=== PATIENT | male | born 1975 | race Caucasian/White ===

== ENCOUNTER 2024-04-01 15:10 | Emergency (ER) | payer OTHER ==
[~2024-04-01] VITALS: Ht 190.5 cm; Wt 86.4 kg
[2024-04-01] MEDS ORDERED: GABA-1181 PO (15:30)
[2024-04-01] MEDS ORDERED: FOLI-130 PO (15:30)
[2024-04-01] MEDS ORDERED: 0.9% SODIUM CHLORIDE 10 ML SYRINGE IVP PRN (15:45)
[2024-04-01] MEDS: SODIUM CHLORIDE 0.9% 2,600 ML IV ONE (15:59)
[2024-04-01] MEDS: ACETAMINOPHEN 1000 MG/ISO-OSM 100 ML IV ONE (15:59)
[2024-04-01 16:23] LABS: BASOPHILS % (AUTO) 0.7 % (0.0-2.0); EOSINOPHILS % (AUTO) 3.3 % (1.0-6.0); HEMATOCRIT 44.9 % (41-53); HEMOGLOBIN 15.1 g/dL (13.5-17.5); LYMPHOCYTES % (AUTO) 19.2 % (22.0-44.0); MEAN CORPUSCULAR HEMOGLOBIN 36.2 pg (26.0-34.0); MEAN CORPUSCULAR HGB CONC 33.6 G/dL (31.0-37.0); MEAN CORPUSCULAR VOLUME 108 fL (80-100); MONOCYTES # (AUTO) 0.5 K/uL (0.1-1.0); MONOCYTES % (AUTO) 9.5 % (2.0-9.0); NEUTROPHILS # (AUTO) 3.5 K/uL (1.8-7.7); NEUTROPHILS % (AUTO) 67.3 % (40.0-70.0); PLATELET COUNT (AUTO) 215 K/uL (150-450); RED BLOOD CELL COUNT(AUTO) 4.17 MIL/uL (4.50-5.90); RED CELL DISTRIBUTION WIDTH 13.2 % (11.5-14.5); WHITE BLOOD COUNT (AUTO) 5.2 K/uL (4.5-11.0)
[2024-04-01 16:30] LABS: PROTHROMBIN TIME 10.1 SEC (9.4-11.6)
[2024-04-01 16:31] LABS: ANION GAP 13 mmol/L (8-16); CALCIUM, TOTAL 8.6 mg/dL (8.8-10.5); CARBON DIOXIDE 25 mmol/L (22-29); CHLORIDE 104 mmol/L (98-107); CREATININE 1.26 mg/dL (0.60-1.30); GLOMERULAR FILTR. RATE CALC > 60 mL/min (>60); GLUCOSE,RANDOM 83 mg/dL (70-110); POTASSIUM 3.7 mmol/L (3.5-5.1); SODIUM SERUM 142 mmol/L (136-145); UREA NITROGEN, BLOOD 13 mg/dL (7-18)
[2024-04-01 16:37] LABS: TROPONIN I-HIGH SENSITIVITY 4 ng/L (<76)
[2024-04-01 16:41] LABS: LACTIC ACID 1.6 mmol/L (0.4-2.0); RBC MORPHOLOGY COMMENT ABNORMAL RBC MORPH
[2024-04-01 16:52] LABS: ALANINE AMINOTRANSFERASE 45 U/L (12-78); ALBUMIN 3.6 g/dL (3.4-5.0); ALKALINE PHOSPHATASE 62 U/L (46-116); ASPARTATE AMINOTRANSFERASE 32 U/L (15-37); BILIRUBIN,TOTAL 0.4 mg/dL (0.1-1.0); CREATINE KINASE, TOTAL ONLY 94 U/L (39-308); TOTAL PROTEIN, SERUM 6.4 g/dL (6.4-8.2)
[2024-04-01 17:22] VITALS: TEMP 98.6
[2024-04-01] MEDS: LORazepam 2 MG/ML VIAL IVP ONE (17:24)
[2024-04-01] MEDS: CefTRIAXone 1 GM/DEXTROSE 50 ML IV ONE (18:14)
[2024-04-01 18:36] LABS: APPEARANCE,URINE CLEAR (CLEAR); BILIRUBIN,URINE NEGATIVE (NEGATIVE); COLOR,URINE YELLOW (YELLOW); GLUCOSE, URINE (UA) NEGATIVE (NEGATIVE); KETONES,URINE NEGATIVE (NEGATIVE); LEUKOCYTE ESTERASE ,URINE NEGATIVE (NEGATIVE); NITRATE,URINE NEGATIVE (NEGATIVE); OCCULT BLOOD,URINE NEGATIVE (NEGATIVE); PH,URINE 5.5 (5.0-8.0); PROTEIN,URINE NEGATIVE (NEGATIVE); SPECIFIC GRAVITIY, URINE 1.012 (1.003-1.030); UROBILINOGEN,URINE <=1.0 mg/dL (<=1.0)
[2024-04-01 19:11] VITALS: BP 125/84; PULSE 82; RESP 18; O2SAT 96
[2024-04-01] MEDS ORDERED: CHLO25CA6 PO (20:16)
== END 2024-04-01 20:30 | disposition home or self-care (01) ==
LOC: EMS 15:16
DX: F10.20 Alcohol dependence, uncomplicated (principal); F41.9 Anxiety disorder, unspecified; G89.29 Other chronic pain; M25.552 Pain in left hip; F17.210 Nicotine dependence, cigarettes, uncomplicated; F12.90 Cannabis use, unspecified, uncomplicated; Y90.9 Presence of alcohol in blood, level not specified
CPT/HCPCS: 99285; 96365; 71045; 96367; 96375; 80053; 81003; 82550; 83605; 84484; 85025; 85610; 87040; 36415; 93005; 84145; J0696; J2060; J7030; J0131